=== PATIENT | female | born 1950 | race Caucasian/White ===

== ENCOUNTER 2020-05-26 22:50 | Observation (INO) | payer MEDICARE, OTHER ==
[2020-05-26] MEDS ORDERED: Narcan 0.4 MG/ML ONE (23:08)
[2020-05-26 23:13] LABS: Absolute Neutrophil Ct (ANC) 6.27 (1.4-6.9); BASOPHIL % 0.2 % (0.0-0.4); Basophil (Absolute #) 0.02 (0-0.4); Eosinophil % 0.1 % (0.00-5.0); Eosinophil (Absolute #) 0.01 (0-0.5); Hematocrit 33.4 % (35-47); Hemoglobin 10.9 gm/dl (12.0-16.0); Lymphocyte (Absolute #) 1.26 (1.0-4.6); Lymphocytes % 15.6 % (24.0-44.0); Mean Cell Volume 89.8 fl (78-100); Mean Corpuscular Hemoglobin 29.3 pg (26-32); Mean Corpuscular Hgb Concent. 32.6 g/dl (32-36); Mean Platelet Volume 10.7 fl (7.5-11.0); Monocyte (Absolute #) 0.54 (0.0-1.3); Monocytes % 6.7 % (0.0-12.0); Neutrophil % 77.4 % (36.0-66.0); Platelet Count 175 K/mm3 (150-450); Red Blood Count 3.72 M/mm3 (4.1-5.4); Red Cell Distribution Width 13.3 % (11.5-14.0); White Blood Count 8.1 K/mm3 (4.0-10.5)
[2020-05-26] MEDS ORDERED: Narcan 0.4 MG/ML IV ONE (23:20)
--- NOTE | 2020-05-26 23:27 | ERPHSYRPT ---
- History of Present Illness Time Seen by Provider: 05/26/20 22:50 Source: patient Exam Limitations: other Patient Subjective Stated Complaint: pt c/o nausea, weakness, dizziness off and on x1 week. Triage Nursing Assessment: pt c/o nausea, weakness, dizziness off and on x1 week. She had started feeling better but these symptoms came back today around 1300. Pt was incont of urine. Pt alert and oriented x2, states year is 1938. NIH 3. Physician History: Patient is a 70-year-old female presents to our emergency department via EMS for evaluation of nausea weakness, dizziness, mild headache and neck pain.. Patient has been experiencing these symptoms intermittently for approximately 1 week. Patient states that symptoms seem to improve earlier in the week however recurred today at approximately 1 PM. Patient's weakness is generalized. No focal weakness. No trauma. Patient denies fevers. Decreased p.o. No chest pain. No vomiting. No diarrhea. No rash. Symptoms are intermittent. Symptoms are moderate in intensity. No specific worsening or improving factors. Patient voices no other complaints or concerns at this time. Timing/Duration: today Severity: moderate Modifying Factors: Improves With: nothing Associated Symptoms: nausea, loss of appetite, No vomiting, No abdominal pain, No shortness of breath, No heartburn, No diaphoresis, No cough, No chills, No chest pain, No fever, No headaches, No malaise, No rash, No syncope, No seizure, No weakness Allergies/Adverse Reactions: No Known Drug Allergies Allergy (Unverified 05/26/20 23:10) Home Medications: Amphet Asp/Amphet/D-Amphet [Dextroamp-Amphet ER 30 mg Cap] 30 mg PO DAILY 0 05/26/20 [History] LORazepam [Lorazepam] 2 mg PO BID 05/26/20 [History] Meclizine HCl 25 mg [Antivert 25 mg] 25 mg PO TID PRN PRN 05/26/20 [History] Omeprazole 20 mg PO DAILY 05/26/20 [History] Hx Tetanus, Diphtheria Vaccination/Date Given: Yes Hx Influenza Vaccination/Date Given: Yes Hx Pneumococcal Vaccination/Date Given: Yes Immunizations Up to Date: Yes Travel Risk - International Travel Have you traveled outside of the country in past 3 weeks: No - Coronavirus Screening Are you exhibiting any of the following symptoms?: No Symptoms: Loss of Taste or Smell, Headaches/Body Aches/Fatigue Close contact with a COVID-19 positive Pt in past 14-21 Days: No - Review of Systems All Other Systems: Unable due to condition - Past Medical History Pertinent Past Medical History: Yes Neurological History: Stroke, TIA ENT History: No Pertinent History Cardiac History: No Pertinent History Respiratory History: No Pertinent History Endocrine Medical History: No Pertinent History Musculoskeletal History: Arthritis GI Medical History: GERD History: No Pertinent History Psycho-Social History: Anxiety, Depression Female Reproductive Disorders: No Pertinent History - Past Surgical History Past Surgical History: Yes Neuro Surgical History: No Pertinent History Cardiac: No Pertinent History Respiratory: No Pertinent History Gastrointestinal: No Pertinent History Musculoskeletal: No Pertinent History Female Surgical History: Hysterectomy - Social History Smoking Status: Never smoker Exposure to second hand smoke: No Drug Use: none Patient Lives Alone: No - Nursing Vital Signs Nursing Vital Signs: Initial Vital Signs Temperature 98.4 F 05/26/20 22:52 Pulse Rate 73 05/26/20 22:52 Respiratory Rate 18 05/26/20 22:52 Blood Pressure 95/52 05/26/20 22:52 O2 Sat by Pulse Oximetry 95 05/26/20 22:52 Pain Scale Pain Intensity 0 - Physical Exam General Appearance: no apparent distress, other (Patient appears somewhat drowsy but easily aroused with tactile and verbal stimuli.) Eye Exam: PERRL/EOMI, eyes nml inspection, other (Pupils constricted and sluggish. Bilaterally equal.) Ears, Nose, Throat Exam: normal ENT inspection, TMs normal, pharynx normal, moist mucous membranes Neck Exam: normal inspection, non-tender, supple, full range of motion, No meningismus Respiratory Exam: normal breath sounds, lungs clear, airway intact, No chest tenderness, No respiratory distress, No accessory muscle use, No wheezing Cardiovascular Exam: regular rate/rhythm, normal heart sounds, normal peripheral pulses Gastrointestinal/Abdomen Exam: soft, normal bowel sounds, No tenderness, No mass Back Exam: normal inspection, normal range of motion, No CVA tenderness, No vertebral tenderness Extremity Exam: normal inspection, normal range of motion, pelvis stable Neurologic Exam: alert, oriented x 3, cooperative, normal mood/affect, nml cerebellar function, nml station & gait, sensation nml, other (NIH score 3), No motor deficits Skin Exam: normal color, warm, dry, No rash Lymphatic Exam: No adenopathy SpO2 Interpretation: normal SpO2: 97 O2 Delivery: Room Air Procedures - Lumbar Puncture Indication: fever, headache, r/o meningitis Lumbar Puncture: consent obtained, sitting, betadine prep, 1% lidocaine local anesth, 3-4 lumbar space, fluid color clear, amount of fluid obtained, no complications Progress: Amount of fluid obtained was approximately 5 to 6 cc total. - Course Nursing assessment & vital signs reviewed: Yes EKG Interpreted by Me: RATE (73), Sinus Rhythm, NORMAL AXIS, NORMAL INTERVALS (Ventricular trigeminy observed.) - Radiology Exams Chest X-ray Interpretation: Interpreted by me (Atelectasis versus scarring at bases. Otherwise clear lung wang. No infiltrate or consolidation. Intact bony thorax. Normal cardiac silhouette no acute findings.) - CT Exams Head CT Interpretation: Tele-radiologist Report (Acute intracranial process. There is evidence of an old right basal ganglia lacunae. There is evidence of a left yee radiata infarct that mostly demonstrates chronic features, but clinical correlation suggested to exclude an acute superimposed over chronic vascular incidents. Diffuse cortical ) Ordered Tests: Active Orders 24 hr Category Date Time Status Communications Professional STAT Care 05/26/20 22:55 Active EKG-ER Only STAT Care 05/26/20 22:54 Active [place] [Catheter-[place]] STAT Care 05/26/20 23:20 Active IV Insertion STAT Care 05/26/20 22:54 Active IV Insertion-2nd Peripheral STAT Care 05/26/20 23:20 Active POCT Glucose Check STAT Care 05/26/20 23:22 Active Pulse Oximetry (ED) STAT Care 05/26/20 22:54 Active CHEST 1 VIEW (PORTABLE) Stat Exams 05/26/20 22:55 Taken HEAD WITHOUT CONTRAST [CT] Stat Exams 05/26/20 22:58 Taken CBC W DIFF Stat Lab 05/26/20 23:10 Completed CMP Stat Lab 05/26/20 23:10 Completed CSF GLUCOSE Stat Lab 05/27/20 01:50 Completed CSF PROTEIN Stat Lab 05/27/20 01:50 Completed CSF, CELL COUNT Stat Lab 05/27/20 01:50 Completed CULTURE,CSF Stat Lab 05/27/20 01:50 Results CULTURE,URINE Stat Lab 05/26/20 23:51 Received ETHYL ALCOHOL Stat Lab 05/26/20 23:10 Completed Lactic Acid Stat Lab 05/26/20 23:02 Completed MAGNESIUM Stat Lab 05/26/20 23:10 Completed POCT GLUCOSE Stat Lab 05/26/20 23:12 Completed TROPONIN Q3H Lab 05/26/20 23:10 Completed TROPONIN Q3H Lab 05/27/20 02:49 Completed TROPONIN Q3H Lab 05/27/20 05:00 Ordered TROPONIN Q3H Lab 05/27/20 08:00 Ordered TROPONIN Q3H Lab 05/27/20 11:00 Ordered TSH [TSH, 3RD Generation] Stat Lab 05/26/20 23:10 Completed UA W/RFX UR CULTURE Stat Lab 05/26/20 23:10 Completed Urine Triage Profile Stat Lab 05/26/20 23:10 Completed Transfer Order Routine Transfer 05/27/20 Ordered Medication Summary Generic Name Dose Route Start Last Admin Trade Name Juanq PRN Reason Stop Dose Admin Magnesium Sulfate/Dextrose 100 mls @ 100 mls/hr 05/26/20 23:45 05/27/20 01:01 Magnesium 1 Gm / 100 Ml D5w IV 05/27/20 01:44 100 mls/hr Q1H SALONI Administration Potassium Chloride 20 meq in 100 mls @ 50 mls/hr 05/26/20 23:45 05/27/20 01:54 Potassium Chloride 20 Meq In Water 100ml IV 05/27/20 03:44 50 mls/hr Q2H SALONI Administration Sodium Chloride 1,000 mls @ 75 mls/hr 05/27/20 00:15 05/27/20 00:09 Sodium Chloride 0.9% 1000 Ml IV 06/26/20 00:14 75 mls/hr .[id number] SALONI Administration Discontinued Medications Generic Name Dose Route Start Last Admin Trade Name Freq PRN Reason Stop Dose Admin Acetaminophen 975 mg 05/27/20 00:01 05/27/20 00:08 Tylenol 325 Mg PO 05/27/20 00:02 975 mg STAT ONE Administration Acetaminophen Confirm 05/27/20 00:06 Tylenol 325 Mg Administered 05/27/20 00:07 Dose 975 mg .ROUTE .STK-MED ONE Acyclovir Sodium Confirm 05/27/20 02:27 Zovirax Inj Administered 05/27/20 02:28 Dose 1,000 mg IV .STK-MED ONE Aspirin 324 mg 05/27/20 00:02 05/27/20 00:10 Baby Aspirin 81 Mg Chew PO 05/27/20 00:03 324 mg STAT ONE Administration Hydrocortisone Sodium Succinate 100 mg 05/27/20 00:27 05/27/20 00:34 Solu-Cortef 100mg IV 05/27/20 00:28 100 mg STAT ONE Administration Hydrocortisone Sodium Succinate Confirm 05/27/20 00:33 Solu-Cortef 100mg Administered 05/27/20 00:34 Dose 100 mg .ROUTE .STK-MED ONE Vancomycin HCl 1 gm in 200 mls @ 125 mls/hr 05/27/20 01:13 05/27/20 02:19 Vancomycin 1 Gram/200 Ml Bag IV 05/27/20 02:48 125 mls/hr STAT ONE 125 mls/hr Administration Ceftriaxone Sodium/Dextrose 1 g in 50 mls @ 100 mls/hr 05/27/20 01:14 01:26 Rocephin 1 Gm-D5w 50 Ml Bag IV 05/27/20 01:43 Not Given STAT STA Ceftriaxone Sodium/Dextrose 1 g in 50 mls @ 100 mls/hr 05/27/20 01:19 05/27/20 01:27 Rocephin 1 Gm-D5w 50 Ml Bag IV 05/27/20 01:48 Not Given STAT ONE Acyclovir Sodium 700 mg/ 100 mls @ 100 mls/hr 05/27/20 01:26 05/27/20 02:30 Dextrose IV 05/27/20 02:25 100 mls/hr STAT ONE Administration Ceftriaxone Sodium/Dextrose Confirm 05/27/20 01:26 Rocephin 2 Gm-D5w 50ml Bag Administered 05/27/20 01:27 Dose 2 g in 50 mls @ ud IV .STK-MED ONE Ceftriaxone Sodium/Dextrose 2 g in 50 mls @ 100 mls/hr 05/27/20 01:49 05/27/20 01:50 Rocephin 2 Gm-D5w 50ml Bag IV 05/27/20 02:18 100 mls/hr STAT STA 100 mls/hr Administration Vancomycin HCl Confirm 05/27/20 01:56 Vancomycin 1 Gram/200 Ml Bag Administered 05/27/20 01:57 Dose 1 gm in 200 mls @ ud IV .STK-MED ONE Dextrose Confirm 05/27/20 02:28 D5w 100ml Mini Bag 100 Ml Administered 05/27/20 02:29 Dose 100 mls @ ud IV .STK-MED ONE Naloxone HCl Confirm 05/26/20 23:08 Narcan 0.4 Mg/Ml Administered 05/26/20 23:09 Dose 0.4 mg .ROUTE .STK-MED ONE Naloxone HCl 0.4 mg 05/26/20 23:20 05/26/20 23:22 Narcan 0.4 Mg/Ml IV 05/26/20 23:21 0.4 mg STAT ONE Administration Lab/Rad Data: Laboratory Result Diagrams 05/26/20 23:10 05/26/20 23:10 Laboratory Results 05/27/20 05/27/20 05/27/20 Range/Units 02:59 02:49 01:50 WBC (4.0-10.5) K/mm3 RBC (4.1-5.4) M/mm3 Hgb (12.0-16.0) gm/dl Hct (35-47) % MCV (78-100) fl MCH (26-32) pg MCHC (32-36) g/dl RDW (11.5-14.0) % Plt Count (150-450) K/mm3 MPV (7.5-11.0) fl Gran % (36.0-66.0) % Eos # (Auto) (0-0.5) Absolute Lymphs (auto) (1.0-4.6) Absolute Monos (auto) (0.0-1.3) Lymphocytes % (24.0-44.0) % Monocytes % (0.0-12.0) % Eosinophils % (0.00-5.0) % Basophils % (0.0-0.4) % Absolute Granulocytes (1.4-6.9) Basophils # (0-0.4) Sodium (137-145) mmol/L Potassium (3.5-5.1) mmol/L Chloride (98-107) mmol/L Carbon Dioxide (22-30) mmol/L Anion Gap (5-15) MEQ/L BUN (7-17) mg/dL Creatinine (0.52-1.04) mg/dL Estimated GFR ML/MIN Glucose (74-106) mg/dL POC Glucometer (74 to 106) mg/dL Lactic Acid (0.4-2.0) Calcium (8.4-10.2) mg/dL Magnesium (1.6-2.3) mg/dL Total Bilirubin (0.2-1.3) mg/dL AST (14-36) U/L ALT (0-35) U/L Alkaline Phosphatase (38-126) U/L Troponin I < 0.012 (0.000-0.034) ng/mL Serum Total Protein (6.3-8.2) g/dL Albumin (3.5-5.0) g/dL TSH 3rd Generation (0.47-4.68) mIU/L Urine Color (YELLOW) Urine Appearance (CLEAR) Urine pH (5-6) Ur Specific [place] (1.005-1.025) Urine Protein (Negative) Urine Ketones (NEGATIVE) Urine Blood (0-5) Rito/ul Urine Nitrite (NEGATIVE) Urine Bilirubin (NEGATIVE) Urine Urobilinogen (0-1) mg/dL Ur Leukocyte Esterase (NEGATIVE) Urine WBC (Auto) (0-5) /HPF Urine RBC (Auto) (0-2) /HPF U Epithel Cells (Auto) (FEW) /HPF Urine Bacteria (Auto) (NEGATIVE) /HPF Urine Mucus (Auto) (NEGATIVE) /HPF Urine Culture Reflexed (NO) Urine Glucose (NEGATIVE) mg/dL CSF Color COLORLESS CSF Clarity CLEAR CSF WBC 4 (0-6) CU. MM CSF RBC 1 (0-2) CU. MM CSF Protein (2) (12-60) mg/dL CSF Glucose (40-70) mg/dL Urine Opiates Level (NEGATIVE) Ur Methadone (NEGATIVE) Urine Barbiturates (NEGATIVE) Ur Phencyclidine (PCP) (NEGATIVE) Urine Amphetamine (NEGATIVE) U Benzodiazepine Level (NEGATIVE) Urine Cocaine (NEGATIVE) Urine Marijuana (THC) (NEGATIVE) Ethyl Alcohol (0-10) mg/dL Influenza Type A Ag NEGATIVE (NEGATIVE) Influenza Type B Ag NEGATIVE (NEGATIVE) RSV (PCR) NEGATIVE (Negative) SARS-CoV-2 (PCR) NEGATIVE (NEGATIVE) 05/27/20 05/26/20 05/26/20 Range/Units 01:50 23:12 23:10 WBC (4.0-10.5) K/mm3 RBC (4.1-5.4) M/mm3 Hgb (12.0-16.0) gm/dl Hct (35-47) % MCV (78-100) fl MCH (26-32) pg MCHC (32-36) g/dl RDW (11.5-14.0) % Plt Count (150-450) K/mm3 MPV (7.5-11.0) fl Gran % (36.0-66.0) % Eos # (Auto) (0-0.5) Absolute Lymphs (auto) (1.0-4.6) Absolute Monos (auto) (0.0-1.3) Lymphocytes % (24.0-44.0) % Monocytes % (0.0-12.0) % Eosinophils % (0.00-5.0) % Basophils % (0.0-0.4) % Absolute Granulocytes (1.4-6.9) Basophils # (0-0.4) Sodium (137-145) mmol/L Potassium (3.5-5.1) mmol/L Chloride (98-107) mmol/L Carbon Dioxide (22-30) mmol/L Anion Gap (5-15) MEQ/L BUN (7-17) mg/dL Creatinine (0.52-1.04) mg/dL Estimated GFR ML/MIN Glucose (74-106) mg/dL POC Glucometer 153 H (74 to 106) mg/dL Lactic Acid (0.4-2.0) Calcium (8.4-10.2) mg/dL Magnesium (1.6-2.3) mg/dL Total Bilirubin (0.2-1.3) mg/dL AST (14-36) U/L ALT (0-35) U/L Alkaline Phosphatase (38-126) U/L Troponin I (0.000-0.034) ng/mL Serum Total Protein (6.3-8.2) g/dL Albumin (3.5-5.0) g/dL TSH 3rd Generation 2.290 (0.47-4.68) mIU/L Urine Color (YELLOW) Urine Appearance (CLEAR) Urine pH (5-6) Ur Specific [place] (1.005-1.025) Urine Protein (Negative) Urine Ketones (NEGATIVE) Urine Blood (0-5) Rito/ul Urine Nitrite (NEGATIVE) Urine Bilirubin (NEGATIVE) Urine Urobilinogen (0-1) mg/dL Ur Leukocyte Esterase (NEGATIVE) Urine WBC (Auto) (0-5) /HPF Urine RBC (Auto) (0-2) /HPF U Epithel Cells (Auto) (FEW) /HPF Urine Bacteria (Auto) (NEGATIVE) /HPF Urine Mucus (Auto) (NEGATIVE) /HPF Urine Culture Reflexed (NO) Urine Glucose (NEGATIVE) mg/dL CSF Color CSF Clarity CSF WBC (0-6) CU. MM CSF RBC (0-2) CU. MM CSF Protein (2) 39 (12-60) mg/dL CSF Glucose 69 (40-70) mg/dL Urine Opiates Level (NEGATIVE) Ur Methadone (NEGATIVE) Urine Barbiturates (NEGATIVE) Ur Phencyclidine (PCP) (NEGATIVE) Urine Amphetamine (NEGATIVE) U Benzodiazepine Level (NEGATIVE) Urine Cocaine (NEGATIVE) Urine Marijuana (THC) (NEGATIVE) Ethyl Alcohol (0-10) mg/dL Influenza Type A Ag (NEGATIVE) Influenza Type B Ag (NEGATIVE) RSV (PCR) (Negative) SARS-CoV-2 (PCR) (NEGATIVE) 05/26/20 05/26/20 05/26/20 Range/Units 23:10 23:10 23:10 WBC (4.0-10.5) K/mm3 RBC (4.1-5.4) M/mm3 Hgb (12.0-16.0) gm/dl Hct (35-47) % MCV (78-100) fl MCH (26-32) pg MCHC (32-36) g/dl RDW (11.5-14.0) % Plt Count (150-450) K/mm3 MPV (7.5-11.0) fl Gran % (36.0-66.0) % Eos # (Auto) (0-0.5) Absolute Lymphs (auto) (1.0-4.6) Absolute Monos (auto) (0.0-1.3) Lymphocytes % (24.0-44.0) % Monocytes % (0.0-12.0) % Eosinophils % (0.00-5.0) % Basophils % (0.0-0.4) % Absolute Granulocytes (1.4-6.9) Basophils # (0-0.4) Sodium (137-145) mmol/L Potassium (3.5-5.1) mmol/L Chloride (98-107) mmol/L Carbon Dioxide (22-30) mmol/L Anion Gap (5-15) MEQ/L BUN (7-17) mg/dL Creatinine (0.52-1.04) mg/dL Estimated GFR ML/MIN Glucose (74-106) mg/dL POC Glucometer (74 to 106) mg/dL Lactic Acid (0.4-2.0) Calcium (8.4-10.2) mg/dL Magnesium (1.6-2.3) mg/dL Total Bilirubin (0.2-1.3) mg/dL AST (14-36) U/L ALT (0-35) U/L Alkaline Phosphatase (38-126) U/L Troponin I < 0.012 (0.000-0.034) ng/mL Serum Total Protein (6.3-8.2) g/dL Albumin (3.5-5.0) g/dL TSH 3rd Generation (0.47-4.68) mIU/L Urine Color YELLOW (YELLOW) Urine Appearance SLIGHTLY CLOUDY (CLEAR) Urine pH 6.0 (5-6) Ur Specific [place] 1.017 (1.005-1.025) Urine Protein 30 (Negative) Urine Ketones NEGATIVE (NEGATIVE) Urine Blood NEGATIVE (0-5) Rito/ul Urine Nitrite NEGATIVE (NEGATIVE) Urine Bilirubin NEGATIVE (NEGATIVE) Urine Urobilinogen NEGATIVE (0-1) mg/dL Ur Leukocyte Esterase NEGATIVE (NEGATIVE) Urine WBC (Auto) 3-5 (0-5) /HPF Urine RBC (Auto) 0-2 (0-2) /HPF U Epithel Cells (Auto) NONE (FEW) /HPF Urine Bacteria (Auto) NONE SEEN (NEGATIVE) /HPF Urine Mucus (Auto) SLIGHT (NEGATIVE) /HPF Urine Culture Reflexed NO (NO) Urine Glucose NEGATIVE (NEGATIVE) mg/dL CSF Color CSF Clarity CSF WBC (0-6) CU. MM CSF RBC (0-2) CU. MM CSF Protein (2) (12-60) mg/dL CSF Glucose (40-70) mg/dL Urine Opiates Level NEGATIVE (NEGATIVE) Ur Methadone NEGATIVE (NEGATIVE) Urine Barbiturates NEGATIVE (NEGATIVE) Ur Phencyclidine (PCP) NEGATIVE (NEGATIVE) Urine Amphetamine NEGATIVE (NEGATIVE) U Benzodiazepine Level NEGATIVE (NEGATIVE) Urine Cocaine NEGATIVE (NEGATIVE) Urine Marijuana (THC) NEGATIVE (NEGATIVE) Ethyl Alcohol (0-10) mg/dL Influenza Type A Ag (NEGATIVE) Influenza Type B Ag (NEGATIVE) RSV (PCR) (Negative) SARS-CoV-2 (PCR) (NEGATIVE) 05/26/20 05/26/20 05/26/20 Range/Units 23:10 23:10 23:02 WBC 8.1 (4.0-10.5) K/mm3 RBC 3.72 L (4.1-5.4) M/mm3 Hgb 10.9 L (12.0-16.0) gm/dl Hct 33.4 L (35-47) % MCV 89.8 (78-100) fl MCH 29.3 (26-32) pg MCHC 32.6 (32-36) g/dl RDW 13.3 (11.5-14.0) % Plt Count 175 (150-450) K/mm3 MPV 10.7 (7.5-11.0) fl Gran % 77.4 H (36.0-66.0) % Eos # (Auto) 0.01 (0-0.5) Absolute Lymphs (auto) 1.26 (1.0-4.6) Absolute Monos (auto) 0.54 (0.0-1.3) Lymphocytes % 15.6 L (24.0-44.0) % Monocytes % 6.7 (0.0-12.0) % Eosinophils % 0.1 (0.00-5.0) % Basophils % 0.2 (0.0-0.4) % Absolute Granulocytes 6.27 (1.4-6.9) Basophils # 0.02 (0-0.4) Sodium 135 L (137-145) mmol/L Potassium 3.2 L (3.5-5.1) mmol/L Chloride 98 (98-107) mmol/L Carbon Dioxide 26 (22-30) mmol/L Anion Gap 13.9 (5-15) MEQ/L BUN 14 (7-17) mg/dL Creatinine 0.89 (0.52-1.04) mg/dL Estimated GFR > 60.0 ML/MIN Glucose 158 H (74-106) mg/dL POC Glucometer (74 to 106) mg/dL Lactic Acid 1.5 (0.4-2.0) Calcium 8.5 (8.4-10.2) mg/dL Magnesium 1.4 L (1.6-2.3) mg/dL Total Bilirubin 0.60 (0.2-1.3) mg/dL AST 35 (14-36) U/L ALT 30 (0-35) U/L Alkaline Phosphatase 45 (38-126) U/L Troponin I (0.000-0.034) ng/mL Serum Total Protein 6.4 (6.3-8.2) g/dL Albumin 3.5 (3.5-5.0) g/dL TSH 3rd Generation (0.47-4.68) mIU/L Urine Color (YELLOW) Urine Appearance (CLEAR) Urine pH (5-6) Ur Specific [place] (1.005-1.025) Urine Protein (Negative) Urine Ketones (NEGATIVE) Urine Blood (0-5) Rito/ul Urine Nitrite (NEGATIVE) Urine Bilirubin (NEGATIVE) Urine Urobilinogen (0-1) mg/dL Ur Leukocyte Esterase (NEGATIVE) Urine WBC (Auto) (0-5) /HPF Urine RBC (Auto) (0-2) /HPF U Epithel Cells (Auto) (FEW) /HPF Urine Bacteria (Auto) (NEGATIVE) /HPF Urine Mucus (Auto) (NEGATIVE) /HPF Urine Culture Reflexed (NO) Urine Glucose (NEGATIVE) mg/dL CSF Color CSF Clarity CSF WBC (0-6) CU. MM CSF RBC (0-2) CU. MM CSF Protein (2) (12-60) mg/dL CSF Glucose (40-70) mg/dL Urine Opiates Level (NEGATIVE) Ur Methadone (NEGATIVE) Urine Barbiturates (NEGATIVE) Ur Phencyclidine (PCP) (NEGATIVE) Urine Amphetamine (NEGATIVE) U Benzodiazepine Level (NEGATIVE) Urine Cocaine (NEGATIVE) Urine Marijuana (THC) (NEGATIVE) Ethyl Alcohol < 10 (0-10) mg/dL Influenza Type A Ag (NEGATIVE) Influenza Type B Ag (NEGATIVE) RSV (PCR) (Negative) SARS-CoV-2 (PCR) (NEGATIVE) - Progress Progress: improved Progress Note: 05/27/20 01:47 NIH score is a 3. CT scan negative for acute stroke. Teleneuro advised lumbar puncture to rule out meningitis is patient experiencing some mild headache and neck pain. Per teleneurologist patient is not a candidate for TPA as her symptoms started approximately 1 week ago and she is outside of therapeutic window. Patient spiked a fever in our ED. Cultures obtained. Lumbar puncture obtained as per requested per teleneurologist. CSF was clear. A gram of vancomycin 2 g of Rocephin and 700 mg of acyclovir administered. Potassium 3.2. Potassium replacement ordered. Magnesium low at 1.4. Magnesium replaced. IV fluids infused. Aspirin administered. We will place patient in isolation pending results of lumbar puncture. Covid screening ordered and pending. Case discussed with Dr. Mckeono accepts admission to observation. Plan of care discussed with patient. She agrees to admission at [facility] for further evaluation and treatment. 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
[2020-05-26 23:28] LABS: ALBUMIN 3.5 g/dL (3.5-5.0); ALKALINE PHOSPHATASE 45 U/L (38-126); ANION GAP 13.9 MEQ/L (5-15); BLOOD UREA NITROGEN 14 mg/dL (7-17); CHLORIDE 98 mmol/L (98-107); Calcium 8.5 mg/dL (8.4-10.2); Carbon Dioxide 26 mmol/L (22-30); Creatinine 1 0.89 mg/dL (0.52-1.04); EST GLOMERULAR FILTRATION RATE > 60.0 ML/MIN; ETHYL ALCOHOL < 10 mg/dL (0-10); Glucose 158 mg/dL (74-106); MAGNESIUM 1.4 mg/dL (1.6-2.3); Potassium 3.2 mmol/L (3.5-5.1); SGOT/AST 35 U/L (14-36); SGPT/ALT 30 U/L (0-35); SODIUM 135 mmol/L (137-145); Total Protein 6.4 g/dL (6.3-8.2)
[2020-05-26 23:55] LABS: Appearance SLIGHTLY CLOUDY (CLEAR); Bilirubin NEGATIVE (NEGATIVE); Blood NEGATIVE Ery/ul (0-5); Glucose NEGATIVE (NEGATIVE); Ketones NEGATIVE (NEGATIVE); Leukocyte Esterase NEGATIVE (NEGATIVE); Mucus SLIGHT /HPF (NEGATIVE); Nitrite NEGATIVE (NEGATIVE); Protein,Urine Dip 30 (Negative); RBC 0-2 /HPF (0-2); Specific Gravity 1.017 (1.005-1.025); Urobilinogen NEGATIVE mg/dL (0-1)
[2020-05-26 23:58] LABS: Bacteria NONE SEEN /HPF (NEGATIVE)
[2020-05-27] MEDS ORDERED: TYLENOL 325 MG PO ONE (00:01)
[2020-05-27] MEDS ORDERED: BABY ASPIRIN 81 MG CHEW PO ONE (00:02)
[2020-05-27 00:05] LABS: Amphetamine,Urine NEGATIVE (NEGATIVE); Barbiturate,Urine NEGATIVE (NEGATIVE); Benzodiazepine,Urine NEGATIVE (NEGATIVE); Cocaine,Urine NEGATIVE (NEGATIVE); Methadone,Urine NEGATIVE (NEGATIVE); Opiate,Urine NEGATIVE (NEGATIVE); PCP,Urine NEGATIVE (NEGATIVE); THC,Urine NEGATIVE (NEGATIVE)
[2020-05-27] MEDS ORDERED: Sodium Chloride 0.9% 1000 ML 1,000 ML ONE (00:06)
[2020-05-27] MEDS ORDERED: Magnesium 1 Gm / 100 Ml D5W*** 100 ML IV ONE ×2 (00:06→00:58)
[2020-05-27] MEDS ORDERED: TYLENOL 325 MG ONE (00:06)
[2020-05-27] MEDS ORDERED: POTASSIUM CHLORIDE 20 mEq IN WATER 100ML 100 ML IV ONE ×2 (00:06→01:53)
[2020-05-27] MEDS: POTASSIUM CHLORIDE 20 mEq IN WATER 100ML 20 MEQ/100 ML BAG IV SCH ×2 (00:09→01:54)
[2020-05-27] MEDS: Magnesium 1 Gm / 100 Ml D5W*** 100 ML IV SCH ×2 (00:09→01:01)
[2020-05-27] MEDS ORDERED: Sodium Chloride 0.9% 1000 ML 1,000 ML IV SCH (00:15)
[2020-05-27] MEDS ORDERED: solu-CORTEF 100MG IV ONE (00:27)
[2020-05-27] MEDS ORDERED: solu-CORTEF 100MG ONE (00:33)
[2020-05-27] MEDS ORDERED: VANCOMYCIN 1 GRAM/200 ML BAG 1 GM/200 ML PIGGYBACK IV ONE ×2 (01:13→01:56)
[2020-05-27] MEDS ORDERED: ROCEPHIN 1 Gm-D5w 50 ml Bag** 1 G/50 ML IVPB IV STA (01:14)
[2020-05-27] MEDS ORDERED: ROCEPHIN 1 Gm-D5w 50 ml Bag** 1 G/50 ML IVPB IV ONE (01:19)
[2020-05-27] MEDS ORDERED: ROCEPHIN 2 Gm-D5w 50ML BAG** 2 G/50 ML IVPB IV ONE (01:26)
[2020-05-27] MEDS ORDERED: ROCEPHIN 2 Gm-D5w 50ML BAG** 2 G/50 ML IVPB IV STA (01:49)
[2020-05-27 02:05] LABS: CSF CLARITY CLEAR; CSF COLOR COLORLESS; CSF RBCS 1 CU. MM (0-2); CSF WBCS 4 CU. MM (0-6)
[2020-05-27 02:07] LABS: CSF GLUCOSE 69 mg/dL (40-70); CSF PROTEIN 39 mg/dL (12-60)
[2020-05-27] MEDS ORDERED: Zovirax INJ IV ONE (02:27)
[2020-05-27] MEDS ORDERED: D5w 100ML Mini Bag 100 ML 100 ML IV ONE (02:28)
[2020-05-27] MEDS: ZOVIRAX IV ONE ×2 (02:29→02:30)
[2020-05-27] MEDS: D5W MINI IV ONE ×2 (02:29→02:30)
[2020-05-27 04:35] LABS: INFLUENZA A NEGATIVE (NEGATIVE); INFLUENZA B NEGATIVE (NEGATIVE); RESPIRATORY SYNCTIAL VIRUS NEGATIVE (Negative)
[2020-05-27] MEDS: Sodium Chloride 0.9% 1000 ML 1,000 ML IV SCH ×2 (07:00→19:38)
--- NOTE | 2020-05-27 08:36 | XRAY ---
Indication: Stroke symptoms. Multiple contiguous images obtained through the head without contrast. Comparison: May 05, 2009. Again age-appropriate global atrophy with progressive worsening mild periventricular degenerative micro-ischemia bilaterally. New remote infarct right caudate head. No acute intracranial hemorrhage, abnormal extra-axial fluid collection, or mass effect. Fourth ventricle is midline without hydrocephalus. Bony calvarium intact. Visualized paranasal sinuses and mastoid air cells are clear. Impression: Nonacute senile brain with new right caudate head remote infarct. Comment: Preliminary interpretation was made by [facility]. No critical discrepancy.
--- NOTE | 2020-05-27 08:37 | XRAY ---
Indication: Pneumonia. Comparison: May 05, 2009. Portable chest remains clear. Heart and mediastinal structures within normal limits. Bony thorax intact again with mild degenerative changes. No new/acute abnormalities.
[2020-05-27] MEDS ORDERED: ANTIVERT 25 MG PO PRN (09:21)
[2020-05-27] MEDS: Protonix 40MG Tablet PO SCH (09:44)
[2020-05-27] MEDS: hydroDIURIL 25 MG PO SCH (09:44)
[2020-05-27] MEDS: Lexapro 10 MG PO SCH (09:44)
[2020-05-27] MEDS: Zestril 20 MG PO SCH (09:44)
[2020-05-27] MEDS: Ativan 1 MG PO SCH ×2 (09:44→21:08)
[2020-05-27] MEDS: D AMPHET PO SCH (09:53)
[2020-05-27] MEDS: AMPHET ASP PO SCH (09:53)
[2020-05-27] MEDS: AMPHET PO SCH (09:53)
[2020-05-27] MEDS ORDERED: NON-FORMULARY ITEM (Lisinopril/Hydrochlorothiazide [Lisinopril-Hctz 20-25 Mg Tab] 1 EACH) PO SCH (10:00)
[2020-05-27] MEDS ORDERED: NON-FORMULARY ITEM (Omeprazole [Omeprazole] 20 MG) PO SCH (10:00)
[2020-05-27] MEDS ORDERED: NON-FORMULARY ITEM (Lorazepam [Lorazepam] 2 MG) PO SCH (10:00)
--- NOTE | 2020-05-27 11:35 | PCM.HP ---
History of Present Illness - Chief Complaint Chief Complaint: c/o fever, altered mental status for 2-3 days History of Present Illness: is a 70 year old female presents to our emergency department via EMS for evaluation of nausea weakness, dizziness, mild headache and neck pain.. Patient has been experiencing these symptoms intermittently for approximately 1 week. Patient states that symptoms seem to improve earlier in the week however recurred today at approximately 1 PM. Patient's weakness is generalized. No focal weakness. No trauma. Patient denies fevers. Decreased p.o. No chest pain. No vomiting. No diarrhea. No rash. Symptoms are intermittent. Symptoms are moderate in intensity. No specific worsening or improving factors. Patient voices no other complaints or concerns at this time. Timing/Duration: today - Review of Systems Constitutional: Fever, Lethargy, No Chills Eyes: No Symptoms Ears, Nose, & Throat: No Symptoms Respiratory: No Cough, No Short Of Breath Cardiac: No Chest Pain, No Edema, No Syncope Abdominal/Gastrointestinal: No Abdominal Pain, No Nausea, No Vomiting, No Diarrhea Genitourinary Symptoms: No Dysuria Musculoskeletal: No Back Pain, No Neck Pain Skin: No Rash Neurological: Lethargy, No Dizziness, No Focal Weakness, No Sensory Changes Psychological: No Symptoms Endocrine: No Symptoms Hematologic/Lymphatic: No Symptoms Immunological/Allergic: No Symptoms Medications & Allergies Home Medications: Home Medication List Amphet Asp/Amphet/D-Amphet [Dextroamp-Amphet ER 30 mg Cap] 30 mg PO DAILY 05/26/20 [History Confirmed 05/26/20] LORazepam [Lorazepam] 2 mg PO BID 05/26/20 [History Confirmed 05/26/20] Meclizine HCl 25 mg [Antivert 25 mg] 25 mg PO TID PRN PRN 05/26/20 [History Confirmed 05/26/20] Omeprazole 20 mg PO DAILY 05/26/20 [History Confirmed 05/26/20] Ergocalciferol (Vitamin D2) [Vitamin D2] 50,000 units PO UD 05/27/20 [History Confirmed 05/27/20] Escitalopram Oxalate 10 mg [Lexapro 10 MG] 10 mg PO DAILY 05/27/20 [History Confirmed 05/27/20] Lisinopril/Hydrochlorothiazide [Lisinopril-Hctz 20-25 mg Tab] 1 each PO DAILY 05/27/20 [History Confirmed 05/27/20] Rosuvastatin Calcium 40 mg PO QHS 05/27/20 [History Confirmed 05/27/20] Allergies/Adverse Reactions: Allergies Allergy/AdvReac Type Severity Reaction Status Date / Time Sulfa (Sulfonamide AdvReac Unknown Hives Verified 05/27/20 05:40 Antibiotics) - Past Medical History Past Medical History: Yes Neurological History: Stroke, TIA ENT History: No Pertinent History Cardiac History: No Pertinent History Respiratory History: No Pertinent History Endocrine Medical History: No Pertinent History Musculoskelatal History: Arthritis GI Medical History: GERD History: No Pertinent History Pyscho-Social History: Anxiety, Depression Reproductive Disorders: No Pertinent History - Female History Are you now?: No - Past Surgical History Past Surgical History: Yes Neuro Surgical History: No Pertinent History Cardiac History: No Pertinent History Respiratory Surgery: No Pertinent History GI Surgical History: No Pertinent History Musculskeletal Surgical Hx: No Pertinent History Female Surgical History: Hysterectomy - Social History Smoking Status: Never smoker Exposure to second hand smoke: No Alcohol: None Drug Use: none - Physical Exam Vital Signs: Vital Signs - 24 hr Temp Pulse Resp BP Pulse Ox 05/27/20 08:00 16 95 05/27/20 07:42 98.1 F 62 18 99/56 98 05/27/20 07:03 93 L 05/27/20 06:00 95.9 F 62 16 99/56 98 05/27/20 05:02 97 05/27/20 05:00 96.8 F 72 16 80/44 95 05/27/20 04:00 97.5 F 72 22 87/53 94 L 05/27/20 03:00 76 22 115/63 94 L 05/27/20 02:00 98.6 F 76 22 96/58 96 05/27/20 01:00 101.3 F 72 22 82/49 97 05/27/20 00:00 101.8 F 66 28 H 94/55 97 05/26/20 23:11 97 05/26/20 22:52 98.4 F 73 18 95/52 95 General Appearance: mild distress, alert Neurologic Exam: alert, oriented x 3, cooperative, disoriented, confusion, No motor deficits Eye Exam: PERRL/EOMI, eyes nml inspection Ears, Nose, Throat Exam: normal ENT inspection, TMs normal, pharynx normal, moist mucous membranes Neck Exam: normal inspection, non-tender, supple, full range of motion Respiratory Exam: normal breath sounds, lungs clear, No respiratory distress Cardiovascular Exam: regular rate/rhythm, normal heart sounds, normal peripheral pulses Gastrointestinal/Abdomen Exam: soft, normal bowel sounds, No tenderness, No mass Back Exam: normal inspection, normal range of motion, No CVA tenderness, No vertebral tenderness Extremity Exam: normal inspection, normal range of motion, pelvis stable Skin Exam: normal color, warm, dry, No rash Lymphatic Exam: No adenopathy Results - Labs Lab/Micro Results: Lab Results-Last 24 Hours 05/26/20 05/26/20 05/26/20 Range/Units 23:02 23:10 23:10 WBC 8.1 (4.0-10.5) K/mm3 RBC 3.72 L (4.1-5.4) M/mm3 Hgb 10.9 L (12.0-16.0) gm/dl Hct 33.4 L (35-47) % MCV 89.8 (78-100) fl MCH 29.3 (26-32) pg MCHC 32.6 (32-36) g/dl RDW 13.3 (11.5-14.0) % Plt Count 175 (150-450) K/mm3 MPV 10.7 (7.5-11.0) fl Gran % 77.4 H (36.0-66.0) % Eos # (Auto) 0.01 (0-0.5) Absolute Lymphs (auto) 1.26 (1.0-4.6) Absolute Monos (auto) 0.54 (0.0-1.3) Lymphocytes % 15.6 L (24.0-44.0) % Monocytes % 6.7 (0.0-12.0) % Eosinophils % 0.1 (0.00-5.0) % Basophils % 0.2 (0.0-0.4) % Absolute Granulocytes 6.27 (1.4-6.9) Basophils # 0.02 (0-0.4) Sodium 135 L (137-145) mmol/L Potassium 3.2 L (3.5-5.1) mmol/L Chloride 98 (98-107) mmol/L Carbon Dioxide 26 (22-30) mmol/L Anion Gap 13.9 (5-15) MEQ/L BUN 14 (7-17) mg/dL Creatinine 0.89 (0.52-1.04) mg/dL Estimated GFR > 60.0 ML/MIN Glucose 158 H (74-106) mg/dL POC Glucometer (74 to 106) mg/dL Lactic Acid 1.5 (0.4-2.0) Calcium 8.5 (8.4-10.2) mg/dL Magnesium 1.4 L (1.6-2.3) mg/dL Total Bilirubin 0.60 (0.2-1.3) mg/dL AST 35 (14-36) U/L ALT 30 (0-35) U/L Alkaline Phosphatase 45 (38-126) U/L Troponin I (0.000-0.034) ng/mL Serum Total Protein 6.4 (6.3-8.2) g/dL Albumin 3.5 (3.5-5.0) g/dL TSH 3rd Generation (0.47-4.68) mIU/L Urine Color (YELLOW) Urine Appearance (CLEAR) Urine pH (5-6) Ur Specific [place] (1.005-1.025) Urine Protein (Negative) Urine Ketones (NEGATIVE) Urine Blood (0-5) Rito/ul Urine Nitrite (NEGATIVE) Urine Bilirubin (NEGATIVE) Urine Urobilinogen (0-1) mg/dL Ur Leukocyte Esterase (NEGATIVE) Urine WBC (Auto) (0-5) /HPF Urine RBC (Auto) (0-2) /HPF U Epithel Cells (Auto) (FEW) /HPF Urine Bacteria (Auto) (NEGATIVE) /HPF Urine Mucus (Auto) (NEGATIVE) /HPF Urine Culture Reflexed (NO) Urine Glucose (NEGATIVE) mg/dL CSF Color CSF Clarity CSF WBC (0-6) CU. MM CSF RBC (0-2) CU. MM CSF Protein (2) (12-60) mg/dL CSF Glucose (40-70) mg/dL Urine Opiates Level (NEGATIVE) Ur Methadone (NEGATIVE) Urine Barbiturates (NEGATIVE) Ur Phencyclidine (PCP) (NEGATIVE) Urine Amphetamine (NEGATIVE) U Benzodiazepine Level (NEGATIVE) Urine Cocaine (NEGATIVE) Urine Marijuana (THC) (NEGATIVE) Ethyl Alcohol < 10 (0-10) mg/dL Influenza Type A Ag (NEGATIVE) Influenza Type B Ag (NEGATIVE) RSV (PCR) (Negative) SARS-CoV-2 (PCR) (NEGATIVE) 05/26/20 05/26/20 05/26/20 Range/Units 23:10 23:10 23:10 WBC (4.0-10.5) K/mm3 RBC (4.1-5.4) M/mm3 Hgb (12.0-16.0) gm/dl Hct (35-47) % MCV (78-100) fl MCH (26-32) pg MCHC (32-36) g/dl RDW (11.5-14.0) % Plt Count (150-450) K/mm3 MPV (7.5-11.0) fl Gran % (36.0-66.0) % Eos # (Auto) (0-0.5) Absolute Lymphs (auto) (1.0-4.6) Absolute Monos (auto) (0.0-1.3) Lymphocytes % (24.0-44.0) % Monocytes % (0.0-12.0) % Eosinophils % (0.00-5.0) % Basophils % (0.0-0.4) % Absolute Granulocytes (1.4-6.9) Basophils # (0-0.4) Sodium (137-145) mmol/L Potassium (3.5-5.1) mmol/L Chloride (98-107) mmol/L Carbon Dioxide (22-30) mmol/L Anion Gap (5-15) MEQ/L BUN (7-17) mg/dL Creatinine (0.52-1.04) mg/dL Estimated GFR ML/MIN Glucose (74-106) mg/dL POC Glucometer (74 to 106) mg/dL Lactic Acid (0.4-2.0) Calcium (8.4-10.2) mg/dL Magnesium (1.6-2.3) mg/dL Total Bilirubin (0.2-1.3) mg/dL AST (14-36) U/L ALT (0-35) U/L Alkaline Phosphatase (38-126) U/L Troponin I < 0.012 (0.000-0.034) ng/mL Serum Total Protein (6.3-8.2) g/dL Albumin (3.5-5.0) g/dL TSH 3rd Generation (0.47-4.68) mIU/L Urine Color YELLOW (YELLOW) Urine Appearance SLIGHTLY CLOUDY (CLEAR) Urine pH 6.0 (5-6) Ur Specific [place] 1.017 (1.005-1.025) Urine Protein 30 (Negative) Urine Ketones NEGATIVE (NEGATIVE) Urine Blood NEGATIVE (0-5) Rito/ul Urine Nitrite NEGATIVE (NEGATIVE) Urine Bilirubin NEGATIVE (NEGATIVE) Urine Urobilinogen NEGATIVE (0-1) mg/dL Ur Leukocyte Esterase NEGATIVE (NEGATIVE) Urine WBC (Auto) 3-5 (0-5) /HPF Urine RBC (Auto) 0-2 (0-2) /HPF U Epithel Cells (Auto) NONE (FEW) /HPF Urine Bacteria (Auto) NONE SEEN (NEGATIVE) /HPF Urine Mucus (Auto) SLIGHT (NEGATIVE) /HPF Urine Culture Reflexed NO (NO) Urine Glucose NEGATIVE (NEGATIVE) mg/dL CSF Color CSF Clarity CSF WBC (0-6) CU. MM CSF RBC (0-2) CU. MM CSF Protein (2) (12-60) mg/dL CSF Glucose (40-70) mg/dL Urine Opiates Level NEGATIVE (NEGATIVE) Ur Methadone NEGATIVE (NEGATIVE) Urine Barbiturates NEGATIVE (NEGATIVE) Ur Phencyclidine (PCP) NEGATIVE (NEGATIVE) Urine Amphetamine NEGATIVE (NEGATIVE) U Benzodiazepine Level NEGATIVE (NEGATIVE) Urine Cocaine NEGATIVE (NEGATIVE) Urine Marijuana (THC) NEGATIVE (NEGATIVE) Ethyl Alcohol (0-10) mg/dL Influenza Type A Ag (NEGATIVE) Influenza Type B Ag (NEGATIVE) RSV (PCR) (Negative) SARS-CoV-2 (PCR) (NEGATIVE) 05/26/20 05/26/20 05/27/20 Range/Units 23:10 23:12 01:50 WBC (4.0-10.5) K/mm3 RBC (4.1-5.4) M/mm3 Hgb (12.0-16.0) gm/dl Hct (35-47) % MCV (78-100) fl MCH (26-32) pg MCHC (32-36) g/dl RDW (11.5-14.0) % Plt Count (150-450) K/mm3 MPV (7.5-11.0) fl Gran % (36.0-66.0) % Eos # (Auto) (0-0.5) Absolute Lymphs (auto) (1.0-4.6) Absolute Monos (auto) (0.0-1.3) Lymphocytes % (24.0-44.0) % Monocytes % (0.0-12.0) % Eosinophils % (0.00-5.0) % Basophils % (0.0-0.4) % Absolute Granulocytes (1.4-6.9) Basophils # (0-0.4) Sodium (137-145) mmol/L Potassium (3.5-5.1) mmol/L Chloride (98-107) mmol/L Carbon Dioxide (22-30) mmol/L Anion Gap (5-15) MEQ/L BUN (7-17) mg/dL Creatinine (0.52-1.04) mg/dL Estimated GFR ML/MIN Glucose (74-106) mg/dL POC Glucometer 153 H (74 to 106) mg/dL Lactic Acid (0.4-2.0) Calcium (8.4-10.2) mg/dL Magnesium (1.6-2.3) mg/dL Total Bilirubin (0.2-1.3) mg/dL AST (14-36) U/L ALT (0-35) U/L Alkaline Phosphatase (38-126) U/L Troponin I (0.000-0.034) ng/mL Serum Total Protein (6.3-8.2) g/dL Albumin (3.5-5.0) g/dL TSH 3rd Generation 2.290 (0.47-4.68) mIU/L Urine Color (YELLOW) Urine Appearance (CLEAR) Urine pH (5-6) Ur Specific [place] (1.005-1.025) Urine Protein (Negative) Urine Ketones (NEGATIVE) Urine Blood (0-5) Rito/ul Urine Nitrite (NEGATIVE) Urine Bilirubin (NEGATIVE) Urine Urobilinogen (0-1) mg/dL Ur Leukocyte Esterase (NEGATIVE) Urine WBC (Auto) (0-5) /HPF Urine RBC (Auto) (0-2) /HPF U Epithel Cells (Auto) (FEW) /HPF Urine Bacteria (Auto) (NEGATIVE) /HPF Urine Mucus (Auto) (NEGATIVE) /HPF Urine Culture Reflexed (NO) Urine Glucose (NEGATIVE) mg/dL CSF Color CSF Clarity CSF WBC (0-6) CU. MM CSF RBC (0-2) CU. MM CSF Protein (2) 39 (12-60) mg/dL CSF Glucose 69 (40-70) mg/dL Urine Opiates Level (NEGATIVE) Ur Methadone (NEGATIVE) Urine Barbiturates (NEGATIVE) Ur Phencyclidine (PCP) (NEGATIVE) Urine Amphetamine (NEGATIVE) U Benzodiazepine Level (NEGATIVE) Urine Cocaine (NEGATIVE) Urine Marijuana (THC) (NEGATIVE) Ethyl Alcohol (0-10) mg/dL Influenza Type A Ag (NEGATIVE) Influenza Type B Ag (NEGATIVE) RSV (PCR) (Negative) SARS-CoV-2 (PCR) (NEGATIVE) 05/27/20 05/27/20 05/27/20 Range/Units 01:50 02:49 02:59 WBC (4.0-10.5) K/mm3 RBC (4.1-5.4) M/mm3 Hgb (12.0-16.0) gm/dl Hct (35-47) % MCV (78-100) fl MCH (26-32) pg MCHC (32-36) g/dl RDW (11.5-14.0) % Plt Count (150-450) K/mm3 MPV (7.5-11.0) fl Gran % (36.0-66.0) % Eos # (Auto) (0-0.5) Absolute Lymphs (auto) (1.0-4.6) Absolute Monos (auto) (0.0-1.3) Lymphocytes % (24.0-44.0) % Monocytes % (0.0-12.0) % Eosinophils % (0.00-5.0) % Basophils % (0.0-0.4) % Absolute Granulocytes (1.4-6.9) Basophils # (0-0.4) Sodium (137-145) mmol/L Potassium (3.5-5.1) mmol/L Chloride (98-107) mmol/L Carbon Dioxide (22-30) mmol/L Anion Gap (5-15) MEQ/L BUN (7-17) mg/dL Creatinine (0.52-1.04) mg/dL Estimated GFR ML/MIN Glucose (74-106) mg/dL POC Glucometer (74 to 106) mg/dL Lactic Acid (0.4-2.0) Calcium (8.4-10.2) mg/dL Magnesium (1.6-2.3) mg/dL Total Bilirubin (0.2-1.3) mg/dL AST (14-36) U/L ALT (0-35) U/L Alkaline Phosphatase (38-126) U/L Troponin I < 0.012 (0.000-0.034) ng/mL Serum Total Protein (6.3-8.2) g/dL Albumin (3.5-5.0) g/dL TSH 3rd Generation (0.47-4.68) mIU/L Urine Color (YELLOW) Urine Appearance (CLEAR) Urine pH (5-6) Ur Specific [place] (1.005-1.025) Urine Protein (Negative) Urine Ketones (NEGATIVE) Urine Blood (0-5) Rito/ul Urine Nitrite (NEGATIVE) Urine Bilirubin (NEGATIVE) Urine Urobilinogen (0-1) mg/dL Ur Leukocyte Esterase (NEGATIVE) Urine WBC (Auto) (0-5) /HPF Urine RBC (Auto) (0-2) /HPF U Epithel Cells (Auto) (FEW) /HPF Urine Bacteria (Auto) (NEGATIVE) /HPF Urine Mucus (Auto) (NEGATIVE) /HPF Urine Culture Reflexed (NO) Urine Glucose (NEGATIVE) mg/dL CSF Color COLORLESS CSF Clarity CLEAR CSF WBC 4 (0-6) CU. MM CSF RBC 1 (0-2) CU. MM CSF Protein (2) (12-60) mg/dL CSF Glucose (40-70) mg/dL Urine Opiates Level (NEGATIVE) Ur Methadone (NEGATIVE) Urine Barbiturates (NEGATIVE) Ur Phencyclidine (PCP) (NEGATIVE) Urine Amphetamine (NEGATIVE) U Benzodiazepine Level (NEGATIVE) Urine Cocaine (NEGATIVE) Urine Marijuana (THC) (NEGATIVE) Ethyl Alcohol (0-10) mg/dL Influenza Type A Ag NEGATIVE (NEGATIVE) Influenza Type B Ag NEGATIVE (NEGATIVE) RSV (PCR) NEGATIVE (Negative) SARS-CoV-2 (PCR) NEGATIVE (NEGATIVE) 05/27/20 05/27/20 Range/Units 05:00 08:20 WBC (4.0-10.5) K/mm3 RBC (4.1-5.4) M/mm3 Hgb (12.0-16.0) gm/dl Hct (35-47) % MCV (78-100) fl MCH (26-32) pg MCHC (32-36) g/dl RDW (11.5-14.0) % Plt Count (150-450) K/mm3 MPV (7.5-11.0) fl Gran % (36.0-66.0) % Eos # (Auto) (0-0.5) Absolute Lymphs (auto) (1.0-4.6) Absolute Monos (auto) (0.0-1.3) Lymphocytes % (24.0-44.0) % Monocytes % (0.0-12.0) % Eosinophils % (0.00-5.0) % Basophils % (0.0-0.4) % Absolute Granulocytes (1.4-6.9) Basophils # (0-0.4) Sodium (137-145) mmol/L Potassium (3.5-5.1) mmol/L Chloride (98-107) mmol/L Carbon Dioxide (22-30) mmol/L Anion Gap (5-15) MEQ/L BUN (7-17) mg/dL Creatinine (0.52-1.04) mg/dL Estimated GFR ML/MIN Glucose (74-106) mg/dL POC Glucometer (74 to 106) mg/dL Lactic Acid (0.4-2.0) Calcium (8.4-10.2) mg/dL Magnesium (1.6-2.3) mg/dL Total Bilirubin (0.2-1.3) mg/dL AST (14-36) U/L ALT (0-35) U/L Alkaline Phosphatase (38-126) U/L Troponin I < 0.012 < 0.012 (0.000-0.034) ng/mL Serum Total Protein (6.3-8.2) g/dL Albumin (3.5-5.0) g/dL TSH 3rd Generation (0.47-4.68) mIU/L Urine Color (YELLOW) Urine Appearance (CLEAR) Urine pH (5-6) Ur Specific [place] (1.005-1.025) Urine Protein (Negative) Urine Ketones (NEGATIVE) Urine Blood (0-5) Rito/ul Urine Nitrite (NEGATIVE) Urine Bilirubin (NEGATIVE) Urine Urobilinogen (0-1) mg/dL Ur Leukocyte Esterase (NEGATIVE) Urine WBC (Auto) (0-5) /HPF Urine RBC (Auto) (0-2) /HPF U Epithel Cells (Auto) (FEW) /HPF Urine Bacteria (Auto) (NEGATIVE) /HPF Urine Mucus (Auto) (NEGATIVE) /HPF Urine Culture Reflexed (NO) Urine Glucose (NEGATIVE) mg/dL CSF Color CSF Clarity CSF WBC (0-6) CU. MM CSF RBC (0-2) CU. MM CSF Protein (2) (12-60) mg/dL CSF Glucose (40-70) mg/dL Urine Opiates Level (NEGATIVE) Ur Methadone (NEGATIVE) Urine Barbiturates (NEGATIVE) Ur Phencyclidine (PCP) (NEGATIVE) Urine Amphetamine (NEGATIVE) U Benzodiazepine Level (NEGATIVE) Urine Cocaine (NEGATIVE) Urine Marijuana (THC) (NEGATIVE) Ethyl Alcohol (0-10) mg/dL Influenza Type A Ag (NEGATIVE) Influenza Type B Ag (NEGATIVE) RSV (PCR) (Negative) SARS-CoV-2 (PCR) (NEGATIVE) Microbiology 05/27/20 01:50 Gram Stain - Final Cerebral Spinal Fluid Accuchecks Date 05/26/20 Time 23:12 - Radiology Impressions Radiology Exams & Impressions: Radiology Procedures Category Date Time Status CHEST 1 VIEW (PORTABLE) Stat Exams 05/26/20 22:55 Completed HEAD WITHOUT CONTRAST [CT] Stat Exams 05/26/20 22:58 Completed Assessment/Plan (1) AMS (altered mental status) Current Visit: Yes Status: Acute Qualifiers: Altered mental status type: disorientation Qualified Code(s): R41.0 - Disorientation, unspecified Code(s): R41.82 - ALTERED MENTAL STATUS, UNSPECIFIED (2) Hypokalemia Current Visit: Yes Status: Acute Code(s): E87.6 - HYPOKALEMIA (3) Hypomagnesemia Current Visit: Yes Status: Acute Code(s): E83.42 - HYPOMAGNESEMIA (4) Meningitis Current Visit: Yes Status: Acute Code(s): G03.9 - MENINGITIS, UNSPECIFIED (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
--- NOTE | 2020-05-27 14:23 | XRAY ---
Indication: Acute mental status change. New TIA. Sagittal, coronal, and axial MRI brain was performed using pre and post T1, T2, FLAIR, diffusion, and ADC sequences. 10 cc Dotarem contrast used. Comparison: None Age-appropriate global atrophy and moderate periventricular degenerative micro-ischemia signal bilaterally. Brainstem demonstrates minimal degenerative micro-ischemia signal. No acute intracranial hemorrhage, abnormal extra-axial fluid collection, or mass effect. Diffusion images are negative for restricted signal. Following gadolinium, there is no abnormal enhancing intra or extra-axial mass. Fourth ventricle is midline without hydrocephalus. 7/8 cranial nerve complex bilaterally symmetric. Normal flow void signal within the major intracerebral circulation. Normal appearing craniocervical junction and sella turcica. Paranasal sinuses are clear. Impression: 1. No acute intracranial abnormalities or evidence for evolving large vessel territorial stroke. 2. Atrophy and degenerative micro-ischemia within normal limits for patient's age. 3. Negative contrast exam.
[2020-05-27] MEDS ORDERED: NON-FORMULARY ITEM (Rosuvastatin Calcium [Rosuvastatin Calcium] 40 MG) PO SCH (22:00)
[2020-05-27] MEDS ORDERED: ZOCOR 20MG PO SCH (22:00)
[2020-05-28 05:10] LABS: Absolute Neutrophil Ct (ANC) 4.73 (1.4-6.9); BASOPHIL % 0.1 % (0.0-0.4); Basophil (Absolute #) 0.01 (0-0.4); Eosinophil % 0.4 % (0.00-5.0); Eosinophil (Absolute #) 0.03 (0-0.5); Hematocrit 31.7 % (35-47); Hemoglobin 10.2 gm/dl (12.0-16.0); Lymphocytes % 28.2 % (24.0-44.0); Mean Cell Volume 91.6 fl (78-100); Mean Corpuscular Hemoglobin 29.5 pg (26-32); Mean Corpuscular Hgb Concent. 32.2 g/dl (32-36); Mean Platelet Volume 10.7 fl (7.5-11.0); Monocyte (Absolute #) 0.59 (0.0-1.3); Monocytes % 7.9 % (0.0-12.0); Neutrophil % 63.4 % (36.0-66.0); Platelet Count 169 K/mm3 (150-450); Red Blood Count 3.46 M/mm3 (4.1-5.4); Red Cell Distribution Width 13.5 % (11.5-14.0); White Blood Count 7.5 K/mm3 (4.0-10.5)
[2020-05-28 05:21] LABS: ALBUMIN 2.9 g/dL (3.5-5.0); ALKALINE PHOSPHATASE 41 U/L (38-126); BLOOD UREA NITROGEN 13 mg/dL (7-17); CHLORIDE 108 mmol/L (98-107); Calcium 8.3 mg/dL (8.4-10.2); Carbon Dioxide 25 mmol/L (22-30); Creatinine 1 0.65 mg/dL (0.52-1.04); EST GLOMERULAR FILTRATION RATE > 60.0 ML/MIN; Glucose 110 mg/dL (74-106); Potassium 3.5 mmol/L (3.5-5.1); SGOT/AST 39 U/L (14-36); SGPT/ALT 31 U/L (0-35); SODIUM 141 mmol/L (137-145); Total Protein 5.7 g/dL (6.3-8.2)
--- NOTE | 2020-05-28 08:31 | PCM.NOTE ---
Date and Time: 05/28/20829 Subjective Assessment: doing better - Review of Systems Constitutional: No Fever, No Chills Eyes: No Symptoms Ears, Nose, & Throat: No Symptoms Respiratory: No Cough, No Short Of Breath Cardiac: No Chest Pain, No Edema, No Syncope Abdominal/Gastrointestinal: No Abdominal Pain, No Nausea, No Vomiting, No Diarrhea Genitourinary Symptoms: No Dysuria Musculoskeletal: No Back Pain, No Neck Pain Skin: No Rash Neurological: No Dizziness, No Focal Weakness, No Sensory Changes Psychological: No Symptoms Endocrine: No Symptoms Hematologic/Lymphatic: No Symptoms Immunological/Allergic: No Symptoms Objective Exam General Appearance: no apparent distress, alert Neurologic Exam: alert, oriented x 3, cooperative, normal mood/affect, nml cerebellar function, sensation nml, No motor deficits Skin Exam: normal color, warm, dry Eye Exam: PERRL, EOMI, eyes nml inspection Ears, Nose, Throat Exam: normal ENT inspection, pharynx normal, moist mucous membranes Neck Exam: normal inspection, non-tender, supple, full range of motion Respiratory Exam: normal breath sounds, lungs clear, No respiratory distress Cardiovascular Exam: regular rate/rhythm, normal heart sounds Gastrointestinal/Abdomen Exam: soft, No tenderness, No mass Extremity Exam: normal inspection, normal range of motion Back Exam: normal inspection, normal range of motion, No CVA tenderness, No vertebral tenderness Pelvic Exam: deferred Rectal Exam: deferred OBJECTIVE DATA Vital Signs: Vital Signs - 24 hr Temp Pulse Resp BP Pulse Ox 05/28/20 07:33 97.5 F 65 16 115/64 95 05/28/20 04:00 97.6 F 62 18 90/54 92 L 05/28/20 00:00 97.5 F 78 17 175/83 98 05/27/20 20:05 95 05/27/20 20:00 97.8 F 88 161/83 93 L 05/27/20 16:00 80 20 135/65 100 05/27/20 12:00 98.5 F 70 18 116/66 98 Pain Assessment - Last Documented Pain Intensity 0 Intake and Output: Intake & Output 05/25/20 05/26/20 05/27/20 05/28/20 11:59 11:59 11:59 11:59 Intake Total 120 1543 Output Total 10 2200 Balance 110 -657 Weight 71.94 kg Lab Results: Lab Results-Last Hours 05/27/20 05/27/20 05/28/20 Range/Units 08:20 11:05 04:42 WBC 7.5 (4.0-10.5) K/mm3 RBC 3.46 L (4.1-5.4) M/mm3 Hgb 10.2 L (12.0-16.0) gm/dl Hct 31.7 L (35-47) % MCV 91.6 (78-100) fl MCH 29.5 (26-32) pg MCHC 32.2 (32-36) g/dl RDW 13.5 (11.5-14.0) % Plt Count 169 (150-450) K/mm3 MPV 10.7 (7.5-11.0) fl Gran % 63.4 (36.0-66.0) % Eos # (Auto) 0.03 (0-0.5) Absolute Lymphs (auto) 2.10 (1.0-4.6) Absolute Monos (auto) 0.59 (0.0-1.3) Lymphocytes % 28.2 (24.0-44.0) % Monocytes % 7.9 (0.0-12.0) % Eosinophils % 0.4 (0.00-5.0) % Basophils % 0.1 (0.0-0.4) % Absolute Granulocytes 4.73 (1.4-6.9) Basophils # 0.01 (0-0.4) Sodium (137-145) mmol/L Potassium (3.5-5.1) mmol/L Chloride (98-107) mmol/L Carbon Dioxide (22-30) mmol/L Anion Gap (5-15) MEQ/L BUN (7-17) mg/dL Creatinine (0.52-1.04) mg/dL Estimated GFR ML/MIN Glucose (74-106) mg/dL Calcium (8.4-10.2) mg/dL Total Bilirubin (0.2-1.3) mg/dL AST (14-36) U/L ALT (0-35) U/L Alkaline Phosphatase (38-126) U/L Troponin I < 0.012 < 0.012 (0.000-0.034) ng/mL Serum Total Protein (6.3-8.2) g/dL Albumin (3.5-5.0) g/dL 05/28/20 Range/Units 04:42 WBC (4.0-10.5) K/mm3 RBC (4.1-5.4) M/mm3 Hgb (12.0-16.0) gm/dl Hct (35-47) % MCV (78-100) fl MCH (26-32) pg MCHC (32-36) g/dl RDW (11.5-14.0) % Plt Count (150-450) K/mm3 MPV (7.5-11.0) fl Gran % (36.0-66.0) % Eos # (Auto) (0-0.5) Absolute Lymphs (auto) (1.0-4.6) Absolute Monos (auto) (0.0-1.3) Lymphocytes % (24.0-44.0) % Monocytes % (0.0-12.0) % Eosinophils % (0.00-5.0) % Basophils % (0.0-0.4) % Absolute Granulocytes (1.4-6.9) Basophils # (0-0.4) Sodium 141 (137-145) mmol/L Potassium 3.5 (3.5-5.1) mmol/L Chloride 108 H (98-107) mmol/L Carbon Dioxide 25 (22-30) mmol/L Anion Gap 11.0 (5-15) MEQ/L BUN 13 (7-17) mg/dL Creatinine 0.65 (0.52-1.04) mg/dL Estimated GFR > 60.0 ML/MIN Glucose 110 H (74-106) mg/dL Calcium 8.3 L (8.4-10.2) mg/dL Total Bilirubin 0.20 (0.2-1.3) mg/dL AST 39 H (14-36) U/L ALT 31 (0-35) U/L Alkaline Phosphatase 41 (38-126) U/L Troponin I (0.000-0.034) ng/mL Serum Total Protein 5.7 L (6.3-8.2) g/dL Albumin 2.9 L (3.5-5.0) g/dL Radiology Exams: Radiology Procedures Category Date Time Status CHEST 1 VIEW (PORTABLE) Stat Exams 05/26/20 22:55 Completed HEAD WITHOUT CONTRAST [CT] Stat Exams 05/26/20 22:58 Completed MRI BRAIN W & W/O CONTRAST [MRI] Routine Exams 05/27/20 12:17 Completed Assessment/Plan (1) AMS (altered mental status) Current Visit: Yes Status: Resolved Qualifiers: Altered mental status type: disorientation Qualified Code(s): R41.0 - Disorientation, unspecified Code(s): R41.82 - ALTERED MENTAL STATUS, UNSPECIFIED (2) Hypokalemia Current Visit: Yes Status: Resolved Code(s): E87.6 - HYPOKALEMIA (3) Hypomagnesemia Current Visit: Yes Status: Resolved Code(s): E83.42 - HYPOMAGNESEMIA (4) Meningitis Current Visit: Yes Status: Suspected Code(s): G03.9 - MENINGITIS, UNSPECIFIED (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
[2020-05-28] MEDS: AMPHET ASP PO SCH (09:30)
[2020-05-28] MEDS: AMPHET PO SCH (09:30)
[2020-05-28] MEDS: D AMPHET PO SCH (09:30)
[2020-05-28] MEDS: hydroDIURIL 25 MG PO SCH (09:31)
[2020-05-28] MEDS: Zestril 20 MG PO SCH (09:31)
[2020-05-28] MEDS: Ativan 1 MG PO SCH (09:32)
[2020-05-28] MEDS: Protonix 40MG Tablet PO SCH (09:32)
[2020-05-28] MEDS: Lexapro 10 MG PO SCH (09:33)
[2020-05-28] MEDS: Sodium Chloride 0.9% 1000 ML 1,000 ML IV SCH (09:34)
[2020-05-28] MEDS ORDERED: VITAMIN D2 PO SCH (10:00)
[2020-05-28 11:13] VITALS: BP 129/61; PULSE 67; O2SAT 94
--- NOTE | 2020-06-01 16:41 | PCM.DS ---
Discharge Summary Date of Admission: 05/27/20 05:23 Admitting Physician: ROGELIO RASHEED Primary Care Provider: CHRIS ANDERSON Allergies Allergies Sulfa (Sulfonamide Antibiotics) Adverse Reaction (Unknown, Verified 05/27/20 05:40) [facility] Summary - Hospital Course Hospital Course: Chief Complaint Diagnosis c/o fever, altered mental status for 2-3 days Allergies Allergy/AdvReac Type Severity Reaction Status Date / Time Sulfa (Sulfonamide AdvReac Unknown Hives Verified 05/27/20 05:40 Antibiotics) Home Medications Medication Instructions Recorded Confirmed Last Taken Type Amphet Asp/Amphet/D-Amphet 30 mg PO DAILY 05/26/20 05/26/20 05/26/20 08:00 History [Dextroamp-Amphet ER 30 mg Cap] LORazepam [Lorazepam] 2 mg PO BID 05/26/20 05/26/20 05/26/20 17:00 History Meclizine HCl 25 mg [Antivert 25 mg PO TID PRN PRN 05/26/20 05/26/20 05/26/20 17:00 History 25 mg] Omeprazole 20 mg PO DAILY 05/26/20 05/26/20 05/26/20 09:00 History Ergocalciferol (Vitamin D2) 50,000 units PO UD 05/27/20 05/27/20 Unknown History [Vitamin D2] Escitalopram Oxalate 10 mg 10 mg PO DAILY 05/27/20 05/27/20 Unknown History [Lexapro 10 MG] Lisinopril/Hydrochlorothiazide 1 each PO DAILY 05/27/20 05/27/20 Unknown History [Lisinopril-Hctz 20-25 mg Tab] Rosuvastatin Calcium 40 mg PO QHS 05/27/20 05/27/20 Unknown History Aspirin EC 81 mg [Ecotrin 81 81 mg PO DAILY #30 tablet 05/28/20 Unknown Rx mg] Current Medications Discontinued Medications Generic Name Dose Route Start Last Admin Trade Name Freq PRN Reason Stop Dose Admin Acetaminophen 975 mg 05/27/20 00:01 05/27/20 00:08 Tylenol 325 Mg PO 05/27/20 00:02 975 mg STAT ONE Administration Acetaminophen Confirm 05/27/20 00:06 Tylenol 325 Mg Administered 05/27/20 00:07 Dose 975 mg .ROUTE .STK-MED ONE Acyclovir Sodium Confirm 05/27/20 02:27 Zovirax Inj Administered 05/27/20 02:28 Dose 1,000 mg IV .STK-MED ONE Aspirin 324 mg 05/27/20 00:02 05/27/20 00:10 Baby Aspirin 81 Mg Chew PO 05/27/20 00:03 324 mg STAT ONE Administration Ergocalciferol 50,000 unit 05/28/20 10:00 05/28/20 09:34 Vitamin D2 PO 06/27/20 09:59 50,000 unit Q7D SALONI Administration Escitalopram Oxalate 10 mg 05/27/20 10:00 05/28/20 09:33 Lexapro 10 Mg PO 06/26/20 09:59 10 mg DAILY SALONI Administration Hydrochlorothiazide 25 mg 05/27/20 10:00 05/28/20 09:31 Hydrodiuril 25 Mg PO 06/26/20 09:59 25 mg DAILY SALONI Administration Hydrocortisone Sodium Succinate 100 mg 05/27/20 00:27 05/27/20 00:34 Solu-Cortef 100mg IV 05/27/20 00:28 100 mg STAT ONE Administration Hydrocortisone Sodium Succinate Confirm 05/27/20 00:33 Solu-Cortef 100mg Administered 05/27/20 00:34 Dose 100 mg .ROUTE .STK-MED ONE Magnesium Sulfate/Dextrose 100 mls @ 100 mls/hr 05/26/20 23:45 05/27/20 01:01 Magnesium 1 Gm / 100 Ml D5w IV 05/27/20 01:44 100 mls/hr Q1H SALONI Administration Potassium Chloride 20 meq in 100 mls @ 50 mls/hr 05/26/20 23:45 05/27/20 01:54 Potassium Chloride 20 Meq In Water 100ml IV 05/27/20 03:44 50 mls/hr Q2H SALONI Administration Sodium Chloride 1,000 mls @ 75 mls/hr 05/27/20 00:15 05/27/20 00:09 Sodium Chloride 0.9% 1000 Ml IV 06/26/20 00:14 75 mls/hr .[id number] SALONI Administration Vancomycin HCl 1 gm in 200 mls @ 125 mls/hr 05/27/20 01:13 05/27/20 02:19 Vancomycin 1 Gram/200 Ml Bag IV 05/27/20 02:48 125 mls/hr STAT ONE 125 mls/hr Administration Ceftriaxone Sodium/Dextrose 1 g in 50 mls @ 100 mls/hr 05/27/20 01:14 05/27/20 01:26 Rocephin 1 Gm-D5w 50 Ml Bag IV 05/27/20 01:43 Not Given STAT STA Ceftriaxone Sodium/Dextrose 1 g in 50 mls @ 100 mls/hr 05/27/20 01:19 05/27/20 01:27 Rocephin 1 Gm-D5w 50 Ml Bag IV 05/27/20 01:48 Not Given STAT ONE Acyclovir Sodium 700 mg/ 100 mls @ 100 mls/hr 05/27/20 01:26 05/27/20 02:30 Dextrose IV 05/27/20 02:25 100 mls/hr STAT ONE Administration Ceftriaxone Sodium/Dextrose Confirm 05/27/20 01:26 Rocephin 2 Gm-D5w 50ml Bag Administered 05/27/20 01:27 Dose 2 g in 50 mls @ ud IV .STK-MED ONE Ceftriaxone Sodium/Dextrose 2 g in 50 mls @ 100 mls/hr 05/27/20 01:49 05/27/20 01:50 Rocephin 2 Gm-D5w 50ml Bag IV 05/27/20 02:18 100 mls/hr STAT STA 100 mls/hr Administration Vancomycin HCl Confirm 05/27/20 01:56 Vancomycin 1 Gram/200 Ml Bag Administered 05/27/20 01:57 Dose 1 gm in 200 mls @ ud IV .STK-MED ONE Dextrose Confirm 05/27/20 02:28 D5w 100ml Mini Bag 100 Ml Administered 05/27/20 02:29 Dose 100 mls @ ud IV .STK-MED ONE Magnesium Sulfate/Dextrose Confirm 05/27/20 00:06 Magnesium 1 Gm / 100 Ml D5w Administered 05/27/20 00:07 Dose 100 mls @ ud IV .STK-MED ONE Magnesium Sulfate/Dextrose Confirm 05/27/20 00:58 Magnesium 1 Gm / 100 Ml D5w Administered 05/27/20 00:59 Dose 100 mls @ ud IV .STK-MED ONE Potassium Chloride Confirm 05/27/20 00:06 Potassium Chloride 20 Meq In Water 100ml Administered 05/27/20 00:07 Dose 100 mls @ ud IV .STK-MED ONE Potassium Chloride Confirm 05/27/20 01:53 Potassium Chloride 20 Meq In Water 100ml Administered 05/27/20 01:54 Dose 100 mls @ ud IV .STK-MED ONE Sodium Chloride Confirm 05/27/20 00:06 Sodium Chloride 0.9% 1000 Ml Administered 05/27/20 00:07 Dose 1,000 mls @ ud .ROUTE .STK-MED ONE Sodium Chloride 1,000 mls @ 75 mls/hr 05/27/20 05:34 05/28/20 09:34 Sodium Chloride 0.9% 1000 Ml IV 06/26/20 05:33 75 mls/hr .[id number] SALONI Administration Lisinopril 20 mg 05/27/20 10:00 05/28/20 09:31 Zestril 20 Mg PO 06/26/20 09:59 20 mg DAILY SALONI Administration Lorazepam 2 mg 05/27/20 10:00 05/28/20 09:32 Ativan 1 Mg PO 06/26/20 09:59 2 mg BID SALONI Administration Meclizine HCl 25 mg 05/27/20 09:21 Antivert 25 Mg PO 06/26/20 09:20 TID PRN PRN DIZZINESS Naloxone HCl Confirm 05/26/20 23:08 Narcan 0.4 Mg/Ml Administered 05/26/20 23:09 Dose 0.4 mg .ROUTE .STK-MED ONE Naloxone HCl 0.4 mg 05/26/20 23:20 05/26/20 23:22 Narcan 0.4 Mg/Ml IV 05/26/20 23:21 0.4 mg STAT ONE Administration Non-Formulary Dru mg 05/27/20 10:00 05/28/20 09:30 (Amphet Asp/Amphet/D PO 06/26/20 09:59 30 mg -Amphet [Dextroamp- DAILY SALONI Administration Amphet Er 30 Mg Cap] Pantoprazole Sodium 40 mg 05/27/20 10:00 05/28/20 09:32 Protonix 40mg Tablet PO 06/26/20 09:59 40 mg DAILY SALONI Administration Simvastatin 40 mg 05/27/20 22:00 05/27/20 21:08 Zocor 20mg PO 06/26/20 21:59 40 mg HS SALONI Administration - Vitals & Intake/Output Vital Signs: Vital Signs Temperature 97.6 F 05/28/20 11:12 Pulse Rate 67 05/28/20 11:12 Respiratory Rate 18 05/28/20 16:00 Blood Pressure 129/61 05/28/20 11:12 O2 Sat by Pulse Oximetry 94 L 05/28/20 11:12 - Lab Result Diagrams: 05/28/20 04:42 05/28/20 04:42 Micro Results-Entire Visit: Microbiology 05/27/20 01:50 Gram Stain - Final Cerebral Spinal Fluid CSF Culture - Final NO GROWTH 05/27/20 02:06 Viral Culture - Preliminary Cerebral Spinal Fluid 05/26/20 23:51 Urine Culture - Final Urine, Catheterized NO GROWTH - Procedures and Test Procedures and Tests throughout Hospitalization: Therapy Orders & Screens 05/27/20 12:17 OT Eval and Treat (MD Order) ONCE Comment: Consulting Provider: Physician Instructions: Reason For Exam: Diagnosis: c/o fever, altered mental status for 2-3 days PT Eval & Treat (MD Order) ONCE Reason for Eval:: altered mental status Diagnosis: c/o fever, altered mental status for 2-3 days Discharge Exam General Appearance: no apparent distress, alert Neurologic Exam: alert, oriented x 3, cooperative, normal mood/affect, nml cerebellar function, sensation nml, No motor deficits Eye Exam: PERRL, EOMI, eyes nml inspection Ears, Nose, Throat Exam: normal ENT inspection, pharynx normal, moist mucous membranes Neck Exam: normal inspection, non-tender, supple, full range of motion Respiratory Exam: normal breath sounds, lungs clear, No respiratory distress Cardiovascular Exam: regular rate/rhythm, normal heart sounds Gastrointestinal/Abdomen Exam: soft, No tenderness, No mass Pelvic Exam: deferred Rectal Exam: deferred Back Exam: normal inspection, normal range of motion, No CVA tenderness, No vertebral tenderness Extremity Exam: normal inspection, normal range of motion Skin Exam: normal color, warm, dry Final Diagnosis/Problem List - Final Discharge Diagnosis/Problem (1) AMS (altered mental status) Status: Resolved Code(s): R41.82 - ALTERED MENTAL STATUS, UNSPECIFIED (2) Hypokalemia Status: Resolved Code(s): E87.6 - HYPOKALEMIA (3) Hypomagnesemia Status: Resolved Code(s): E83.42 - HYPOMAGNESEMIA (4) Meningitis Status: Suspected Code(s): G03.9 - MENINGITIS, UNSPECIFIED (5) 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 Status: Acute Code(s): Z86.73 - PRSNL HX OF TIA (TIA), AND CEREB INFRC W/O RESID DEFICITS - Discharge Discharge Date: 05/28/20 Disposition: Home, Self-Care Condition: Stable Prescriptions: New Aspirin EC 81 mg [Ecotrin 81 mg] 81 mg PO DAILY #30 tablet Continue LORazepam [Lorazepam] 2 mg PO BID Omeprazole 20 mg PO DAILY Meclizine HCl 25 mg [Antivert 25 mg] 25 mg PO TID PRN PRN PRN Reason: Dizziness Amphet Asp/Amphet/D-Amphet [Dextroamp-Amphet ER 30 mg Cap] 30 mg PO DAILY Rosuvastatin Calcium 40 mg PO QHS Lisinopril/Hydrochlorothiazide [Lisinopril-Hctz 20-25 mg Tab] 1 each PO DAILY Escitalopram Oxalate 10 mg [Lexapro 10 MG] 10 mg PO DAILY Ergocalciferol (Vitamin D2) [Vitamin D2] 50,000 units PO UD Outpatient Orders: Occupational Therapy Eval & Treat Facility: [facility], Location: OCCUPATIONAL THERAPY Physical Therapy Eval & Treat Facility: [facility], Location: PHYSICAL THERAPY Speech Therapy Eval & Treat Facility: [facility], Location: SPEECH THERAPY Instructions: Altered Mental Status (DC) Additional Instructions: YOU HAVE AN APPOINTMENT WITH OT[facility] ON Monday06/01/20@0800 THERAPY WILL BE CONTACTING YOU TO ARRANGE A AN APPOINTMENT FOR YOU TO START SERVICES WITH THEM FOR PT Follow up with: CHRIS ANDERSON [Primary Care Provider] - Call for Appointment (just walk in clinic and I faxed patients chart to clinic )
== END 2020-05-28 16:50 | disposition home or self-care (01) ==
LOC: ED 22:50 → MED SURG 05-27 05:23
PROVIDERS: ADMIT General Practice; ATTEND General Practice
DX: R41.82 Altered mental status, unspecified (principal); R42 Dizziness and giddiness; R11.0 Nausea; G93.40 Encephalopathy, unspecified; R53.1 Weakness; G03.9 Meningitis, unspecified; M54.2 Cervicalgia; Z86.73 Personal history of transient ischemic attack (TIA), and cerebral infarction without residual deficits; I10 Essential (primary) hypertension; E78.5 Hyperlipidemia, unspecified; E87.6 Hypokalemia; E83.42 Hypomagnesemia; Z20.828 Contact with and (suspected) exposure to other viral communicable diseases; Z79.899 Other long term (current) drug therapy
CPT/HCPCS: 0241U; 36000; 36415; 51702; 70450; 70553; 71045; 80053; 80307; 81001; 82945; 82947; 83605; 83735; 84157; 84443; 84484; 85025; 87070; 87086; 87254; 87529; 87798; 89050; 93005; 93041; 93268; 94760; 94762; 96374; 97110; 97161; 97165; 97530; 99285; G0378; G0480; Q3014; 87483; J0133; J0696; J1720; J2310; J3475; J3480; A9270-GY; J3370

== ENCOUNTER 2023-09-03 17:57 | Emergency (ER) | payer MEDICARE, OTHER ==
--- NOTE | 2023-09-03 18:14 | ERPHSYRPT ---
- History of Present Illness Time Seen by Provider: 09/03/23 18:14 Source: patient, family Exam Limitations: no limitations Physician History: This is a 73-year-old white female patient who presents with the complaint of anxiety, shakiness, nausea and insomnia. Patient takes 2 mg of lorazepam twice a day. She has been out for 4 days now. Her PCP is out of town and this has happened in the past where she is been without her antianxiety medication and she has had the same symptoms. Patient has a history of gastroesophageal reflux disease, hypertension, anxiety, depression and peripheral neuropathy. Patient denies chest pain. She denies abdominal pain. She has no shortness of breath. She is not wanting a workup. She does not want to provide labs or urine. She only wants a few days of a refill on her lorazepam and antinausea medicine. Timing/Duration: day(s) (4) Severity: moderate Associated Symptoms: nausea, other (Insomnia and shakiness) Allergies/Adverse Reactions: Sulfa (Sulfonamide Antibiotics) Adverse Reaction (Unknown, Verified 09/03/23 18:15) [facility] Home Medications: LORazepam [Lorazepam] 2 mg PO BID 05/26/20 [History] Meclizine HCl 25 mg [Antivert 25 mg] 25 mg PO TID PRN PRN 05/26/20 [History] Omeprazole 20 mg PO DAILY 05/26/20 [History] Escitalopram Oxalate [Lexapro] 20 mg PO DAILY 05/27/20 [History] Lisinopril/Hydrochlorothiazide [Lisinopril-Hctz 20-25 mg Tab] 1 each PO DAILY 05/27/20 [History] Ezetimibe 10 mg [Zetia 10 MG] 10 mg PO DAILY 09/03/23 [History] Hx Tetanus, Diphtheria Vaccination/Date Given: Yes Hx Influenza Vaccination/Date Given: Yes Hx Pneumococcal Vaccination/Date Given: Yes Travel Risk - International Travel Have you traveled outside of the country in past 3 weeks: No - Emerging Infectious Disease Are you exhibiting symptoms associated with any current EIDs: No - Review of Systems Constitutional: No Symptoms Eyes: No Symptoms Ears, Nose, & Throat: No Symptoms Respiratory: No Symptoms Cardiac: No Symptoms, No Chest Pain Abdominal/Gastrointestinal: Nausea, No Abdominal Pain, No Vomiting, No Diarrhea Genitourinary Symptoms: No Symptoms Musculoskeletal: No Symptoms Skin: No Symptoms Neurological: Other (Achiness) Psychological: Other (Insomnia) Endocrine: No No Symptoms Hematologic/Lymphatic: No Symptoms Immunological/Allergic: No Symptoms All Other Systems: Reviewed and Negative - Past Medical History Pertinent Past Medical History: Yes Neurological History: Peripheral Neuropathy, TIA ENT History: No Pertinent History Cardiac History: Hypertension Respiratory History: No Pertinent History Endocrine Medical History: No Pertinent History Musculoskeletal History: No Pertinent History GI Medical History: GERD History: No Pertinent History Psycho-Social History: Anxiety, Depression Female Reproductive Disorders: No Pertinent History Other Medical History: TIA - Past Surgical History Past Surgical History: Yes Neuro Surgical History: No Pertinent History Cardiac: No Pertinent History Respiratory: No Pertinent History Gastrointestinal: No Pertinent History Musculoskeletal: No Pertinent History Female Surgical History: Hysterectomy - Social History Smoking Status: Never smoker Exposure to second hand smoke: No Drug Use: none Patient Lives Alone: No - Nursing Vital Signs Nursing Vital Signs: Initial Vital Signs Temperature 96.4 F 09/03/23 18:16 Pulse Rate 66 09/03/23 18:16 Respiratory Rate 20 09/03/23 18:16 Blood Pressure 135/67 09/03/23 18:16 O2 Sat by Pulse Oximetry 95 09/03/23 18:16 Pain Scale Pain Intensity 0 - Physical Exam General Appearance: no apparent distress, alert, anxiety Eye Exam: PERRL/EOMI, eyes nml inspection Ears, Nose, Throat Exam: normal ENT inspection, moist mucous membranes Neck Exam: normal inspection, non-tender, supple, full range of motion Respiratory Exam: normal breath sounds, lungs clear, airway intact, No chest tenderness, No respiratory distress Cardiovascular Exam: regular rate/rhythm, normal heart sounds, normal peripheral pulses Gastrointestinal/Abdomen Exam: soft, normal bowel sounds, No tenderness Pelvic Exam: not done Rectal Exam: not done Back Exam: normal inspection, normal range of motion, No CVA tenderness, No vertebral tenderness Extremity Exam: normal inspection, normal range of motion, pelvis stable Neurologic Exam: alert, oriented x 3, cooperative, 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, sensation nml Skin Exam: normal color, warm, dry Lymphatic Exam: No adenopathy SpO2 Interpretation: normal O2 Delivery: Room Air - Course Nursing assessment & vital signs reviewed: Yes Ordered Tests: Medication Summary Discontinued Medications Generic Name Dose Route Start Last Admin Trade Name Freq PRN Reason Stop Dose Admin Lorazepam 2 mg 09/03/23 19:05 09/03/23 19:19 Lorazepam 1 Mg Tablet PO 09/03/23 19:06 2 mg STAT ONE Administration Ondansetron HCl 4 mg 09/03/23 19:04 09/03/23 19:19 Zofran 4 Mg/Udtablet Orally Disintegrating PO 09/03/23 19:05 4 mg STAT ONE Administration - Progress Progress: improved Progress Note: 09/03/23 19:24 My medical decision making and the assignment of low complexity to this patient's medical issue today is first based on the patient's desire to only have a medication refill for couple of days until her primary care provider can refill her medication. In addition it is based on review of the patient's past medical history, review the patient's medication list, review of the patient's drug allergy list, history present illness and physical findings on examination. I offered a workup place an intravenous line, infusion of normal saline solution, CBC, CMP, urinalysis, twelve-lead EKG, and magnesium level. The patient declines. She will sign a refusal of testing sheet. She is aware that the symptoms she is experiencing could be something different and her symptoms could worsen and she could even experience . She is aware and will sign the refusal of testing/treatment form. Counseled pt/family regarding: diagnosis, need for follow-up Medical Desision Making - Independent Historian Additional History obtained from: Family - Diagnostic Testing Diagnostic test were ordered, analyzed, and reviewed by me: No - Risk of complications Low Risk: Low risk of morbidity from additional dx testing or treatment - Departure Departure Disposition: Home Clinical Impression: Anxiety, Medication withdrawal, Insomnia, Nausea Condition: Stable Critical Care Time: No Referrals: CHRIS ANDERSON [Primary Care Provider] - Follow up/PCP as directed Additional Instructions: Take your medications as prescribed. Call your primary care provider tomorrow morning, 09/04/2023 for further evaluation management and to be seen in the next 2 to 3 days. Prescriptions: Ondansetron ODT 4 MG [Zofran Odt 4 mg] 4 mg PO Q6H PRN PRN #10 tablet PRN Reason: Vomiting Lorazepam 1 mg [Ativan 1 MG] 2 mg PO Q12H PRN PRN #6 tablet PRN Reason: Anxiety
[2023-09-03 18:23] VITALS: BP 135/67; PULSE 66; RESP 20; TEMP 96.4; O2SAT 95
[2023-09-03] MEDS ORDERED: ZOFRAN ODT 4 MG ONE ×2 (19:18→19:40)
[2023-09-03] MEDS ORDERED: Ativan 1 MG ONE ×2 (19:18→19:41)
[2023-09-03] MEDS: Ativan 1 MG PO ONE ×2 (19:19→19:44)
[2023-09-03] MEDS: ZOFRAN ODT 4 MG PO ONE ×2 (19:19→19:41)
== END 2023-09-03 19:39 | disposition home or self-care (01) ==
LOC: ED 17:57
DX: F41.9 Anxiety disorder, unspecified (principal); F13.939 Sedative, hypnotic or anxiolytic use, unspecified with withdrawal, unspecified; G47.00 Insomnia, unspecified; R11.0 Nausea; I10 Essential (primary) hypertension; Z79.899 Other long term (current) drug therapy
CPT/HCPCS: 99282; Q0162; A9270-GY